=== PATIENT | male | born 1985 | race African-American/Black ===

== ENCOUNTER 2024-08-12 12:56 | Outpatient (OUT) | payer OTHER, SELFPAY ==
[2024-08-12 14:03] LABS: Basophils Percent Auto 0.6 % (0.2-2.0); Eosinophils Absolute Auto 0.3 10^3/uL (0.0-0.7); Eosinophils Percent Auto 4.9 % (0.9-7.0); Hematocrit 39.9 % (42.0-54.0); Hemoglobin 13.6 g/dL (14.0-18.0); Immature Granulocytes Abs Auto 0.01 10^3/uL (0.00-0.03); Immature Granulocytes Pct Auto 0.2 % (0.0-0.5); Lymphocytes Absolute Auto 2.5 10^3/uL (1.2-3.8); Lymphocytes Percent Auto 49.2 % (20.5-60.0); Mean Corpuscular HGB Conc 34.1 g/dL (29.9-35.2); Mean Corpuscular Hemoglobin 30.1 pg (25.9-34.0); Mean Corpuscular Volume 88.3 fL (80.0-94.0); Mean Platelet Volume 10.3 fL (9.5-13.5); Monocytes Absolute Auto 0.3 10^3/uL (0.3-0.8); Monocytes Percent Auto 6.1 % (1.7-12.0); Platelet Count 197 10^3/uL (150-450); Red Blood Count 4.52 10^6/uL (4.70-6.10); White Blood Count 5.1 10^3/uL (4.0-11.0)
[2024-08-12 14:08] LABS: Alanine Aminotransferase 35 U/L (16-63); Albumin Level 3.4 g/dL (3.4-5.0); Alkaline Phosphatase 84 U/L (46-116); Anion Gap 12.6; Aspartate Amino Transferase 15 U/L (15-37); BUN Creatinine Ratio 9.1; Bilirubin Total 0.3 mg/dL (0.2-1.0); Calcium 8.9 mg/dL (8.5-10.1); Carbon Dioxide 28.2 mmol/L (21.0-32.0); Chloride 105 mmol/L (98-107); Estimated GFR (African America >60 (>=60 mL/min/1.73m^2); Estimated GFR (Non-African Ame >60 (>=60 mL/min/1.73m^2); Globulin 3.5 g/dL; Glucose 143 mg/dL (74-106); Potassium 3.8 mmol/L (3.5-5.1); Sodium 142 mmol/L (136-145); Total Protein 6.9 g/dL (6.4-8.2)
[2024-08-13 05:12] LABS: HBsAg Screen Negative (Negative); HCV Ab Non Reactive (Non Reactive); HIV Ab/p24 Ag Screen Non Reactive (Non Reactive); Hepatitis B Surf Ab Quant <3.5 mIU/mL (Immunity>10)
== END 2024-08-12 12:57 | disposition home or self-care (01) ==
LOC: LAB 13:07
PROVIDERS: PCP Nurse Practitioner Primary Care; Visit Provider Nurse Practitioner Primary Care
DX: F15.20 Other stimulant dependence, uncomplicated (principal); F10.20 Alcohol dependence, uncomplicated
CPT/HCPCS: 36415; 80053; 85025; 86317; 86803; 87340; 87389